=== PATIENT | female | born 1955 | race Two or more races ===

== ENCOUNTER 2016-11-02 09:26 | Day surgery (SDC) | payer OTHER ==
[2016-11-02] VITALS (12 sets, daily range): BP systolic 100–152; BP diastolic 50–74; PULSE 74–88; RESP 10–20; Ht 152.4 cm; Wt 66.8 kg
[~2016-11-02] VITALS: Ht 152.4 cm; Wt 66.8 kg
[~2016-11-02 09:26] MED LIST: DIPHENHYDRAMINE 50 MG INJ IV PRN; FENTAnyl 50 MCG/ML VIAL IV PRN; HYDROmorphONE (0.2 MG/ML) 10ML SYG IV PRN; KETOROLAC 30 MG INJ IV ONE; MEPERIDINE 25 MG INJ IV PRN; ONDANSETRON 4 MG INJ IV PRN; OXYCODONE/ACETAMINOPHEN (5/325) TAB PO PRN; PROCHLORPERAZINE 10 MG INJ IV PRN
[2016-11-02] MEDS ORDERED: SOD CHLORIDE 0.9% 1,000 ML IV ONE (09:30)
[2016-11-02] MEDS ORDERED: CEFAZOLIN 2 GM/50 ML (PMX) 50 ML IVPB ONE (09:30)
[2016-11-02] MEDS ORDERED: LOSA1TAB21 PO (10:03)
--- NOTE | 2016-11-02 11:00 | RADRPT ---
PROCEDURE: XR Chest. CLINICAL INDICATION: right gluteal mass, preop TECHNIQUE: AP view of the chest was obtained. COMPARISON: None. FINDINGS: The cardiomediastinal silhouette is within normal limits. The lungs are clear. No pleural effusion or pneumothorax is identified. Visualized osseous structures are grossly intact. IMPRESSION: No evidence of active cardiopulmonary disease. RPTAT: VV .Wallace Dover MD, MD Date Time Electronically viewed and signed by .Wallace Dover MD, on 11/02/2016 11:00 .O/
[2016-11-02 11:01] LABS: INR 0.93; PROTIME 12.5 Sec (12.2-14.2)
[2016-11-02 11:02] LABS: PARTIAL THROMBOPLASTIN TIME 31.2 Sec (25.0-35.0)
[2016-11-02] MEDS ORDERED: BUPIVACAINE 0.5% (SDV) 30 ML INJ ONE (12:31)
[2016-11-02] MEDS ORDERED: LIDOCAINE 2% (MDV) 20 ML INJ ONE (12:31)
[2016-11-02] MEDS ORDERED: BUPIVACAINE 0.25% (MPF) 30 ML INJ ONE (12:31)
[2016-11-02] MEDS ORDERED: LIDOCAINE 2% (MDV) 20 ML INJ INJ ONE (12:43)
[2016-11-02] MEDS ORDERED: BUPIVACAINE 0.5% (SDV) 30 ML INJ INJ ONE (12:43)
[2016-11-02] MEDS ORDERED: LIDOCAINE 2% (SDV) 5 ML INJ ONE (12:58)
[2016-11-02] MEDS ORDERED: CEFAZOLIN 1 GM INJ ONE (12:58)
[2016-11-02] MEDS ORDERED: PROPOFOL 20 ML ONE (12:58)
[2016-11-02] MEDS ORDERED: MIDAZOLAM 1 MG/ML 2 ML INJ ONE (12:59)
[2016-11-02] MEDS ORDERED: FENTAnyl 50 MCG/ML VIAL ONE (12:59)
[2016-11-02] MEDS ORDERED: ONDANSETRON 4 MG INJ ONE (13:12)
[2016-11-02] MEDS ORDERED: EPHEDrine SULFATE 50 MG/5 ML SYG ONE (13:12)
[2016-11-02] MEDS ORDERED: METOCLOPRAMIDE 10 MG INJ ONE (13:12)
[2016-11-02] MEDS ORDERED: KETOROLAC 30 MG INJ ONE (13:38)
--- NOTE | 2016-11-02 13:59 | OPR ---
Date/Time of Note Date/Time of Note DATE: 11/02/16 TIME: 13:58 Operative Report Procedure Date: Nov 02, 2016 Preoperative Diagnosis right gluteal mass Postoperative Diagnosis same Operation Performed excision of right gluteal tumor 3 cm with 5 cm incision localized adjacent tissue transfer with the use of skin flaps 10 sq cm therapeutic injection of local anesthesia Surgeon: Chanelle CHAUDHARI Specimens right gluteal mass Chanelle CHAUDHARI Nov 02, 2016 13:59
[2016-11-02] MEDS ORDERED: ACETAMINOPHEN/CODEINE #3 TAB PO ONE (14:00)
--- NOTE | 2016-11-02 15:13 | OPR ---
DATE OF OPERATION: 11/02/2016 INDICATION: This is a 61-year-old female with a right gluteal mass. She requests surgical excision . Risks, alternatives, benefits, and personnel were discussed with the patient. Patient expressed understanding and consents to the operation. PREOPERATIVE DIAGNOSIS: Right gluteal tumor. POSTOPERATIVE DIAGNOSIS: Right gluteal tumor. OPERATION PERFORMED: 1. Excision of right gluteal tumor with a 5 cm size incision and 3 cm size tumor. 2. Localized adjacent tissue transfer with the use of skin flaps of square defect of 10 cm2. 3. Therapeutic injection of subcutaneous local anesthesia. SURGEON: Joaquin Huber MD SPECIMEN: Right gluteal mass. COMPLICATIONS: None. ANESTHESIA: General. PROCEDURE: The patient was taken to the OR and prepped and draped in the usual sterile fashion. Stevens rgical timeout was performed. IV antibiotics were given. Transverse incision was made with a 15 bl ana. Dissection cautery was carried down to the mass, and the mass was circumferentially excised. There was good hemostasis. Due to the large tissue defect, localization adjacent tissue transfer wi th the use of skin flaps was performed. Multilevel closure with interrupted 3-0 Vicryl and skin sta ples. Local anesthesia was injected. Dry dressings were applied. Dictated By: JOAQUIN MEREDITH/NNEKA Conf#: [id number] DID#: [id number]
== END 2016-11-02 15:40 | disposition home or self-care (01) ==
LOC: SDS 09:26
PROVIDERS: ATTEND Surgery
DX: D36.16 Benign neoplasm of peripheral nerves and autonomic nervous system of pelvis (principal); I10 Essential (primary) hypertension; E66.9 Obesity, unspecified; Z68.28 Body mass index [BMI] 28.0-28.9, adult
CPT/HCPCS: 14000; 71010; 85610; 85730; 88307; J0690; J1885; J2250; J2405; J2765; J3010